=== PATIENT | male | born 1970 | race Caucasian/White ===

== ENCOUNTER 2023-07-04 11:48 | Emergency (ER) | payer MEDICAID, OTHER ==
[~2023-07-04] VITALS: Ht 172.7 cm; Wt 74.8 kg
[2023-07-04 11:49] VITALS: BP 106/73; PULSE 60; RESP 18; TEMP 97.8; O2SAT 96
[2023-07-04] MEDS ORDERED: ACETAMINOPHEN 500 MG TAB PO ONE (12:30)
[2023-07-04] MEDS ORDERED: LIDOCAINE 1% HCL (LOCAL ANESTH.) INJ 20ML MDV SC ONE (15:30)
[2023-07-04] MEDS ORDERED: TETANUS-DIPTH-ACEL PERTUSSIS 0.5ML SYR Tdap IM ONE (18:15)
[2023-07-04] MEDS ORDERED: CEPH500C PO (18:20)
== END 2023-07-04 18:56 | disposition home or self-care (01) ==
LOC: ER 11:48 → EDBD 11:48 → ER 18:52
DX: S51.811A Laceration without foreign body of right forearm, initial encounter (principal); Z79.899 Other long term (current) drug therapy; W22.8XXA Striking against or struck by other objects, initial encounter; Y93.89 Activity, other specified; Y92.89 Other specified places as the place of occurrence of the external cause; Y99.8 Other external cause status
CPT/HCPCS: 12004; 73110; 90471; 90715; 99283; J2001